=== PATIENT | male | born 2000 | race Caucasian/White ===

== ENCOUNTER 2018-06-03 20:27 | Emergency (ER) | payer OTHER ==
[2018-06-03 20:34] VITALS: BP 113/85
--- NOTE | 2018-06-03 23:13 | ER Document Report ---
ED General - General Chief Complaint: Nausea/Vomiting Stated Complaint: VOMITING Time Seen by Provider: 06/03/18 23:00 Notes: Patient presents with chief complaint of nausea vomiting that started last night he had several bouts this morning missing work. He denies any chest pain shortness of breath cough congestion recent fevers or illnesses and denies any abdominal pain dysuria or testicular pain. Patient has no known medical problems. Patient states he has been waiting for 4-5 hours in the emergency department he is not vomiting and is asymptomatic at this time. - Related Data Allergies/Adverse Reactions: No Known Allergies Allergy (Verified 06/03/18 22:55) Past Medical History - Social History Smoking Status: Never Smoker Frequency of alcohol use: None Drug Abuse: None Family History: Reviewed & Not Pertinent Patient has suicidal ideation: No Patient has homicidal ideation: No Renal/ Medical History: Denies: Hx Peritoneal Dialysis Review of Systems - Review of Systems Constitutional: No symptoms reported EENT: No symptoms reported Cardiovascular: No symptoms reported Respiratory: No symptoms reported Gastrointestinal: Nausea, Vomiting Genitourinary: No symptoms reported Male Genitourinary: No symptoms reported Musculoskeletal: No symptoms reported Skin: No symptoms reported Hematologic/Lymphatic: No symptoms reported Neurological/Psychological: No symptoms reported Physical Exam - Vital signs Vitals: Temp Pulse Resp BP Pulse Ox 98.5 F 80 18 113/85 99 06/03/18 20:32 06/03/18 20:32 06/03/18 20:32 06/03/18 20:32 06/03/18 20:32 - General General appearance: Appears well, Alert - HEENT Head: Normocephalic, Atraumatic - Respiratory Respiratory status: No respiratory distress Chest status: Nontender - Cardiovascular Rhythm: Regular Heart sounds: Normal auscultation Murmur: No - Abdominal Inspection: Normal Distension: No distension Bowel sounds: Normal - Neurological Neuro grossly intact: Yes Cognition: Normal Orientation: AAOx4 Course - Re-evaluation Re-evalutation: 06/03/18 23:14 Patient well-appearing in no acute distress. Will be discharged with Zofran return precautions provided - Vital Signs Vital signs: Temp Pulse Resp BP Pulse Ox 98.5 F 80 18 113/85 99 06/03/18 20:32 06/03/18 20:32 06/03/18 20:32 06/03/18 20:32 06/03/18 20:32 Discharge - Discharge Clinical Impression: Nausea & vomiting Qualifiers: Vomiting type: unspecified Vomiting Intractability: non-intractable Qualified Code(s): R11.2 - Nausea with vomiting, unspecified Disposition: HOME, SELF-CARE Instructions: Antinausea Medication ([facility]), Vomiting ([facility]) Prescriptions: Ondansetron [Zofran Odt 4 mg Tablet] 1 tab PO ASDIR PRN #15 tab.rapdis PRN Reason: For Nausea/Vomiting Forms: Return to Work
== END 2018-06-03 23:35 | disposition home or self-care (01) ==
LOC: EDBD → ER 20:27
DX: R11.2 Nausea with vomiting, unspecified (principal)
CPT/HCPCS: 99283